=== PATIENT | male | born 1965 | race Caucasian/White ===

== ENCOUNTER 2017-10-12 12:11 | Emergency (ER) | payer BC, OTHER ==
[2017-10-12 12:33] VITALS: BP 141/97
--- NOTE | 2017-10-12 12:51 | UC ---
Abdominal Pain Male HPI - HPI Summary HPI Summary: For 1.5 weeks he has had Lower abd pain. It is intermittent. It started with a BM where he was straining. No symptoms but the pain radiates down to the perineum. No fever or chills. he has been able to work and go to the gym but going over some bumps in the road. - History of Current Complaint Chief Complaint: UCGeneralIllness Stated Complaint: ABDOMINAL PAIN Time Seen by Provider: 10/12/17 12:35 Hx Obtained From: Patient Onset/Duration: Sudden Onset, Lasting Weeks Timing: Constant Severity Initially: Moderate Severity Currently: Moderate Pain Intensity: 2 Location: Discrete At: LLQ, Suprapubic Radiates: Yes Radiates to: Inguinal - and posterior to the scrotum. Character: Aching, Sharp Aggravating Factor(s): Movement, Other - Palpation. Alleviating Factor(s): Rest, Position Associated Signs And Symptoms: Positive: Blood in Stool. Negative: Fever, Cough , Chest Pain, Dizzy, Constipation, Urinary Symptoms, Nausea, Vomiting, Diarrhea , Penile Discharge - Allergies/Home Medications Allergies/Adverse Reactions: Allergies Allergy/AdvReac Type Severity Reaction Status Date / Time No Known Allergies Allergy Verified 10/12/17 12:24 PMH/Surg Hx/FS Hx/Imm Hx Previously Healthy: No - Surgical History Surgical History: Yes Surgery Procedure, Year, and Place: dental - Family History Known Family History: Positive: Cardiac Disease, Hypertension, Other - diverticulitis. - Social History Occupation: Employed Full-time Alcohol Use: Daily Alcohol Amount: 2-10 beer/wine daily Substance Use Type: Marijuana Substance Use Comment - Amount & Last Used: OCCASIONAL Smoking Status (MU): Former Smoker Type: Cigars Amount Used/How Often: TWO PER WEEK When Did the Patient Quit Smoking/Using Tobacco: 2017 Review of Systems Gastrointestinal: Abdominal Pain All Other Systems Reviewed And Are Negative: Yes Physical Exam Triage Information Reviewed: Yes Appearance: Well-Appearing, No Pain Distress, Well-Nourished Vital Signs: Initial Vital Signs Temp 98.4 F 10/12/17 12:25 Pulse 91 10/12/17 12:25 Resp 16 10/12/17 12:25 BP 141/97 10/12/17 12:25 Pulse Ox 97 10/12/17 12:25 Vital Signs Reviewed: Yes Eye Exam: Normal Eyes: Positive: Conjunctiva Clear ENT: Positive: Normal ENT inspection Neck: Positive: Supple, Nontender, No Lymphadenopathy Respiratory: Positive: Normal breath sounds, No respiratory distress, No accessory muscle use. Negative: Respiratory distress, Decreased breath sounds, Accessory muscle use, Crackles, Rhonchi, Stridor Cardiovascular: Positive: No Murmur, Pulses Normal, Brisk Capillary Refill Abdominal Exam: Other - There is LLQ tenderness. No tenderness of the testicles or perineum. No swelling or redness. No guarding. rebound. Abdomen Description: Positive: No Organomegaly, Soft. Negative: CVA Tenderness (R), CVA Tenderness (L), Distended Male Genital Exam: Positive: Other - STanding hernia exam neg.. Negative: Hernia Mass, High Riding Prostate, Scrotum Tenderness (R), Scrotum Tenderness (L ), Testicular Tenderness (R), Testicular Tenderness (L) Musculoskeletal: Positive: Strength Intact, ROM Intact, No Edema Neurological: Positive: Alert, Muscle Tone Normal. Negative: Fatigued Psychological: Positive: Age Appropriate Behavior Skin: Negative: rashes Abd Pain Male Course/Dx - Course Course Of Treatment: 1.5 weeks of abd pain without surgical abd on exam. No systemic symptoms and vitals are stable. CT pending for possible diverticulitis. CT reviewed. There is a possible small abcess. Again he has non surgical abd and no systemic symptoms. I believe he can go home on antibiotics and f/u with Dr. Gonzalez. He is reliable and agrees to f/u but also agrees to go to Ed immediatly for any worsening symptoms such as fever, worsening pain, vomiting. On Ct there are no signs of perforation and on exam there are no peritoneal signs such as guarding or rebound. - Differential Dx/Clinical Impression Provider Diagnoses: abd pain LLQ. acute diverticulitis. Discharge - Sign-Out/Discharge Documenting (check all that apply): Patient Departure - Discharge Plan Condition: Good Disposition: HOME Prescriptions: Amoxicillin/Clavulanate TAB* [Augmentin TAB 875*] 875 mg PO BID #20 tab Patient Education Materials: Diverticulitis (ED) Referrals: No Primary Care Phys,NOPCP [Primary Care Provider] - Juan Manuel Gonzalez MD [Medical Doctor] - 2 Days Additional Instructions: Go to ED for any worsening symptoms. - Billing Disposition and Condition Condition: GOOD Disposition: Home
[2017-10-12 13:13] LABS: EGFR Non-African American 89.3 (>60)
[2017-10-12] MEDS ORDERED: Iohexol 300* (CONTRAST) 10 ML SDV IV ONE (13:16)
--- NOTE | 2017-10-12 13:55 | RAD ---
INDICATION: LEFT lower quadrant tenderness. Symptoms for 10 days. Assess for diverticulitis. COMPARISON: No relevant prior exams available [place] [facility] [place]. TECHNIQUE: Multidetector CT images were obtained from the lung bases to the ischial tuberosities with 145 mL Omnipaque 300 IV and oral contrast. Multiplanar reformation. REPORT: VISUALIZED INFERIOR THORAX: Unremarkable. LIVER / GALLBLADDER / PANCREAS / SPLEEN: 17.2 cm cephalocaudal liver is decreased in density consistent with fatty infiltration. No focal hepatic lesions or biliary dilatation. No CT abnormality of the gallbladder, pancreas, spleen. ALIMENTARY TRACT: Negative for CT abnormality of the upper GI, small bowel, or retrocecal appendix. Mild diverticulosis of the colon primarily involving the sigmoid colon. Moderate length moderate mural thickening of the mid sigmoid colon. Along the mesenteric margin there is a peripherally enhancing centrally hypodense lesion arising from the sigmoid bowel wall measuring up to 2.3 cm diameter suspicious for early perienteric abscess. Small volume of free pelvic fluid. Negative for free air. Small fat-containing indirect LEFT inguinal hernia without inflammatory change. MESENTERIC: Mild edema at the sigmoid mesentery. ADRENAL / GENITOURINARY: Normal adrenal glands. Unremarkable kidneys with symmetric nephrograms and pyelograms. Unremarkable nondilated ureters. Largely decompressed urinary bladder limiting assessment without suspicious finding. RETROPERITONEAL: Negative for lymphadenopathy. VASCULAR: Negative for aortoiliac aneurysm. BONES: Negative for suspicious osseous lesions. SOFT TISSUE: Physiologic activity only. IMPRESSION: #. The constellation of findings at the sigmoid colon is most suspicious for acute diverticulitis with early small perienteric abscess formation. Interval contrast-enhanced CT follow-up after therapy suggested to assess for resolution of the bowel wall thickening to exclude a colon carcinoma. #. Small volume of ascites. #. Hepatosteatosis.
[2017-10-12 18:33] LABS: ABS Basophils 0 10^3/ul (0-0.2); ABS Eosinophils 0.2 10^3/ul (0-0.6); ABS Lymphocytes 1.7 10^3/ul (1.0-4.8); ABS Neutrophils 7.6 10^3/ul (1.5-7.7); ABS Nucleated RBC 0 10^3/ul; Eosinophil % 1.8 % (0-6); Hematocrit 44 % (42-52); Hemoglobin 15.4 g/dl (14.0-18.0); Lymphocyte % 15.8 % (25-47); Mean Corpuscular HGB Conc 35 g/dl (31-36); Mean Corpuscular Hemoglobin 31 pg (27-31); Mean Corpuscular Volume 90 fL (80-94); Nucleated Red Blood Cells % 0; Platelet Count 299 10^3/ul (150-450); Red Blood Count 4.92 10^6/ul (4.00-5.40); Red Cell Distribution Width 13 % (10.5-15); White Blood Count 10.5 10^3/ul (3.5-10.8)
[2017-10-12 19:00] LABS: EGFR Non-African American 78.2 (>60)
--- NOTE | 2017-10-13 11:21 | UC ---
- Progress Note Progress Note: CBC/ CMP reviewed non-concerning results no change ljj 10/13/2017 Discharge - Sign-Out/Discharge Documenting (check all that apply): Post-Discharge Follow Up - Discharge Plan Condition: Good Disposition: HOME Prescriptions: Ciprofloxacin TAB* [Cipro 500 MG TAB*] 500 mg PO BID #20 tab metroNIDAZOLE [Flagyl 500 MG TAB] 500 mg PO TID #1 tab Patient Education Materials: Diverticulitis (ED) Forms: *Work Release Referrals: Juan Manuel Gonzalez MD [Medical Doctor] - No Primary Care Phys,NOPCP [Primary Care Provider] - Additional Instructions: Go to ED for any worsening symptoms. Please keep your appointment with Dr. Gonzalez as we discussed. We will write down the appointment date and time for your. - Billing Disposition and Condition Condition: GOOD Disposition: Home
== END 2017-10-12 14:45 | disposition home or self-care (01) ==
LOC: UCCORT 12:11
DX: R10.32 Left lower quadrant pain (principal); K57.92 Diverticulitis of intestine, part unspecified, without perforation or abscess without bleeding; Z87.891 Personal history of nicotine dependence
CPT/HCPCS: 36415; 74177; 80053; 81003; 82565; 84520; 85025; 99212; G0463; Q9967